=== PATIENT | male | born 1985 | race American Indian/Alaskan Native ===

== ENCOUNTER 2018-05-09 16:15 | Emergency (ER) | payer OTHER ==
--- NOTE | 2018-05-09 16:28 | Emergency Department Report ---
Blank Doc - Documentation Documentation: This is a 32-year-old male that presents with midsternum chest pain with some mild SOB. Patient stated went to PCP and started to get anxious. Patient stated that his PCP send him to the ED due to tachycardia and HTN. This initial assessment/diagnostic orders/clinical plan/treatment(s) is/are subject to change based on patient's health status, clinical progression and re- assessment by fellow clinical providers in the ED. Further treatment and workup at subsequent clinical providers discretion. Patient/guardians urged not to elope from the ED as their condition may be serious if not clinically assessed and managed. Initial orders include: 1- Patient sent to MAIN ED for further evaluation and treatment 2- Labs 3- EKG 4- CXR
[2018-05-09] MEDS ORDERED: ALUM-MAG HYDROX-SIMETH 200-200-20MG/5ML PO ONE (17:14)
[2018-05-09] MEDS ORDERED: LIDOCAINE VISCOUS 2% PO ONE (17:15)
[2018-05-09] MEDS ORDERED: BENTYL PO ONE (17:16)
[2018-05-09 17:32] LABS: Amphetamine Screen,Urine PRESUMPTIVE NEGATIVE; Benzodiazepines Screen,Urine PRESUMPTIVE NEGATIVE; Cannabinoid Screen,Urine PRESUMPTIVE NEGATIVE; Cocaine Screen,Urine PRESUMPTIVE NEGATIVE; Methadone Screen,Urine PRESUMPTIVE NEGATIVE; Opiate Screen,Urine PRESUMPTIVE NEGATIVE
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
[2018-05-09 17:42] LABS: Amorphous Crystals,Urine Few; Bacteria,Urine 1+ /HPF (Negative); Bilirubin,Urine NEG (Negative); Blood,Urine NEG (Negative); Color,Urine Yellow (Yellow); Mucus,Urine FEW /HPF; Protein,Urine <15 mg/dL mg/dL (Negative)
[2018-05-09 18:16] LABS: Basophils # (Auto) 0.1 K/mm3 (0.0-0.1); Basophils % (Auto) 0.7 % (0.0-1.8); Eosinophils # (Auto) 0.1 K/mm3 (0.0-0.4); Eosinophils % (Auto) 0.9 % (0.0-4.3); Lymphocytes # (Auto) 0.7 K/mm3 (1.2-5.4); Lymphocytes % (Auto) 6.4 % (13.4-35.0); Mean Corpuscular HGB Conc 36 % (32-34); Mean Corpuscular Volume 94 fl (84-94); Monocytes # (Auto) 0.8 K/mm3 (0.0-0.8); Monocytes % (Auto) 7.2 % (0.0-7.3); Platelet Count 261 K/mm3 (140-440); Red Blood Count 4.88 M/mm3 (3.65-5.03); Red Cell Distribution Width 13.4 % (13.2-15.2)
[2018-05-09 18:18] LABS: Hematocrit 46.1 % (35.5-45.6); Hemoglobin 16.4 gm/dl (11.8-15.2)
--- NOTE | 2018-05-09 18:30 | XRay Report ---
PROCEDURE: Chest. TECHNIQUE: PA and lateral views. HISTORY: Chest pain. COMPARISONS: None. FINDINGS: The heart and mediastinum appear normal. The lungs are clear and well-expanded. There are no pleural effusions. The soft tissues and regional skeleton are unremarkable. IMPRESSION: No evidence of acute disease. This document is electronically signed by Robson Morales MD., May 09 2018 06:27:47 PM ET
[2018-05-09 18:31] LABS: Partial Thromboplastin Time 23.6 Sec. (24.2-36.6)
[2018-05-09 18:51] LABS: Alanine Aminotransferase 61 units/L (7-56); Albumin 4.7 g/dL (3.9-5); BUN/Creatinine Ratio 18; Blood Urea Nitrogen 11 mg/dL (9-20); Calcium 9.6 mg/dL (8.4-10.2); Hemolysis Index 20
[2018-05-09 19:42] VITALS: BP 155/95
[2018-05-09] MEDS ORDERED: PROTONIX PO ONE (20:00)
== END 2018-05-09 20:37 | disposition home or self-care (01) ==
LOC: ED 16:15
DX: F41.9 Anxiety disorder, unspecified (principal); K21.9 Gastro-esophageal reflux disease without esophagitis; I10 Essential (primary) hypertension; F43.10 Post-traumatic stress disorder, unspecified; F17.200 Nicotine dependence, unspecified, uncomplicated; F42.9 Obsessive-compulsive disorder, unspecified
CPT/HCPCS: 36415; 71046; 80053; 80307; 81001; 84484; 85025; 85379; 85610; 85730; 93005; 93010